=== PATIENT | female | born 1945 | race Caucasian/White ===

== ENCOUNTER → 2017-01-27 | Outpatient (CLI) | payer MEDICARE ==
[~2017-01-27] VITALS: Ht 160 cm; Wt 67.6 kg
[~2017-01-27] MED LIST: ASP81TEC PO; ATRV10T PO; CATHETER FLUSH 10 ML SYR IV PRN; FRSM20T PO; FURO40TA4 PO; METO-333 PO; MTP25TSR PO; NIFE30TA PO; NITR0.4T12 SL; OMEG1CAP74 PO; PNT40TEC PO; POTA10CA43 PO; TICA90TA PO
[2017-01-27 13:06] VITALS: BP 177/63
--- NOTE | 2017-01-28 08:43 | STRESS TEST ---
DATE OF SERVICE: 01/27/2017 EXERCISE MYOVIEW STRESS TEST INDICATION: Coronary artery disease. Baseline heart rate is 63. Baseline blood pressure 177/63. Baseline EKG sinus rhythm with no ischemic changes. In summary, the patient was injected with 10.38 mCi of technetium-99 Myoview and the resting images were obtained. Then, the patient started exercising with a baseline heart rate, blood pressure and EKG mentioned above. At minute 7 patient was injected with 30.1 mCi of technetium-99 Myoview. The patient was able to finish a total of 8 minutes on standard Dima protocol, achieving maximum heart rate of 132, which is 88% of maximum expected heart rate. With peak exercise level blood pressure was 193/97. EKG was showing minimal nondiagnostic changes. During recovery, heart rate and blood pressure returned to baseline. EKG returned to baseline. The resting and stressed images were reviewed and compared in the short axis, horizontal long axis, and vertical long axis views. Review of the images showed good radiotracer uptake with no significant ischemia or infarction on SPECT images. SSS 5, SDS 2, TID value 1.12. On the gated images, the left ventricle appeared to be normal size with normal contractility. Calculated ejection fraction 74%. CONCLUSION: 1. Fair exercise tolerance, a total of 8 minutes on standard Dima protocol, total of 9.5 METS achieving 88% of maximum expected heart rate. 2. Baseline hypertension with hypertensive response to exercise. 3. Minimal nondiagnostic EKG changes with exercise returned to baseline during recovery. 4. No significant ischemia or infarction on SPECT images. 5. Normal left ventricular size with normal contractility. Calculated ejection fraction 74%. Job ID: [id number] DocumentID: [id number] Dictated Date: 01/27/2017 14:55:16 Recooperer Date: 01/27/2017 18:28:03 Dictated By: VALARIE MARTELL MD
== END ==
LOC: CARD 09:29
PROVIDERS: ATTEND Physician Assistant
DX: I25.10 Atherosclerotic heart disease of native coronary artery without angina pectoris (principal); I10 Essential (primary) hypertension; E78.2 Mixed hyperlipidemia; I21.4 Non-ST elevation (NSTEMI) myocardial infarction
CPT/HCPCS: 78452; 93017; 93306

== ENCOUNTER → 2017-07-02 | Outpatient (CLI) | payer MEDICARE ==
[~2017-07-02] MED LIST changes: -CATHETER FLUSH 10 ML SYR IV PRN
[2017-07-02] MEDS: IOHEXOL 350 MG/ML 100 ML (OMNIPAQUE 350) VIAL IV ONE (16:34)
[2017-07-02] MEDS: CATHETER FLUSH 10 ML SYR IV PRN (16:34)
--- NOTE | 2017-07-02 17:23 | Diagnostic Imaging Report ---
PROCEDURE: CT chest with contrast only. TECHNIQUE: Multiple contiguous axial images were obtained through the chest after administration of intravenous contrast. INDICATION: Left arm tingling. COMPARISON: CT chest from 10/08/2012. FINDINGS: Lungs and airway: No endoluminal lesion in the trachea or central bronchi. Biapical subpleural scarring is stable and asymmetric to the right. No pulmonary mass or consolidation. No suspicious pulmonary nodules to suggest neoplasm. Pleura: No pleural effusion or pneumothorax. Heart and mediastinum: Thyroid is normal. No supraclavicular or axillary lymphadenopathy. No mediastinal, hilar or juxtaphrenic lymphadenopathy. The heart is mildly enlarged without pericardial effusion. Coronary artery calcifications and/or stents are in place. Tiny hiatus hernia. Normal caliber thoracic aorta with moderate atherosclerotic plaquing. Upper abdomen: Scattered subcentimeter hypodensities within the liver are stable and likely represent cysts. Atherosclerosis of the aorta. Musculoskeletal: No concerning focal osseous lesions. IMPRESSION: 1. No acute cardiopulmonary process. 2. Stable cardiomegaly with coronary artery calcifications and/or stents. 3. Stable biapical subpleural scarring. Dictated by: Dictated on workstation # [id number]
== END ==
LOC: RAD 13:55
PROVIDERS: ATTEND Internal Medicine
DX: I25.10 Atherosclerotic heart disease of native coronary artery without angina pectoris (principal); I51.7 Cardiomegaly; J94.8 Other specified pleural conditions
CPT/HCPCS: 71260

== ENCOUNTER 2018-05-20 15:31 | Observation (INO) | payer MEDICARE ==
[~2018-05-20] VITALS: Ht 157.5 cm; Wt 68.0 kg
[2018-05-20] VITALS (9 sets, daily range): BP systolic 147–173; BP diastolic 67–86
--- OUTSIDE RECORDS SUMMARY | 2018-05-20 15:38 | XMS REPORT | Continuity of Care Document ---
Author Author [facility] Organization [facility] Address Unknown Phone Unavailable Allergies Active Description Code Type Severity Reaction Onset Reported/Identified Relationship to Patient Clinical Status Yes No Known Drug Allergies [id number] Drug Allergy Unknown N/A 09/22/2012 Medications There is no data. 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,OTH INFERIOR WALL,INI 09/28/2012 Ot 414.01 CORONARY ATHEROSCLEROSIS OF [place] CORON 09/28/2012 Ot 518.81 ACUTE RESPIRATORY FAILURE 09/28/2012 Ot 785.51 CARDIOGENIC SHOCK 09/28/2012 Ot 996.72 OTH COMPLICATIONS DUE TO OTH CARD DEVICE 10/08/2012 Ot 272.4 HYPERLIPIDEMIA NEC/NOS 10/08/2012 Ot 305.1 TOBACCO USE DISORDER 10/08/2012 Ot 401.9 HYPERTENSION NOS 10/08/2012 Ot 410.42 AC MYOCRD INFRCT,OTH INFERIOR WALL,SUBSE 10/08/2012 Ot 414.01 CORONARY ATHEROSCLEROSIS OF [place] CORON 10/08/2012 Ot 530.81 ESOPHAGEAL REFLUX 10/08/2012 Ot 780.4 DIZZINESS AND GIDDINESS 10/08/2012 Ot 786.59 CHEST PAIN NEC 10/08/2012 Ot 790.99 BLOOD EXAM - OTH NONSPECIFIC FINDINGS 10/08/2012 Ot V45.82 PERCUTANEOUS TRANSLUM CORON ANGIOPLASTY 01/22/2013 VALARIE MARTELL MD Ot 410.92 AC MYOCARDIAL INFARCT,UNSPEC SITE,SUBSEQ 01/22/2013 VALARIE MARTELL MD Ot V57.89 REHABILITATION PROC NEC 01/27/2013 VALARIE MARTELL MD Ot 410.92 AC MYOCARDIAL INFARCT,UNSPEC SITE,SUBSEQ 01/27/2013 VALARIE MARTELL MD Ot V57.89 REHABILITATION PROC NEC 08/15/2014 JAYSHREE CELIS, VALARIE Mojica Ot 272.4 08/15/2014 JAYSHREE CELIS, VALARIE Mojica Ot 305.1 08/15/2014 JAYSHREE CELIS, VALARIE Mojica Ot 410.70 08/15/2014 JAYSHREE CELIS, VALARIE Mojica Ot 414.00 08/15/2014 JAYSHREE CELIS, VALARIE Mojica Ot 784.92 01/28/2015 JAYSHREE CELIS, VALARIE Mojica Ot 272.4 01/28/2015 JAYSHREE CELIS, VALARIE Mojica Ot 305.1 01/28/2015 JAYSHREE CELIS, VALARIE Mojica Ot 401.9 01/28/2015 JAYSHREE CELIS, VALARIE Mojica Ot 414.9 02/11/2015 JAYSHREE CELIS, VALARIE Mojica Ot 272.4 02/11/2015 JAYSHREE CELIS, VALARIE Mojica Ot 305.1 02/11/2015 JAYSHREE CELIS, VALARIE Mojica Ot 401.9 02/11/2015 JAYSHREE CELIS, VALARIE Mojica Ot 414.9 02/20/2015 Ot V76.12 02/20/2015 Ot 786.2 02/20/2015 Ot 786.50 02/20/2015 Ot 433.10 02/20/2015 Ot 573.8 02/20/2015 Ot 780.4 02/20/2015 JAYSHREE CELIS, VALARIE Mojica Ot 272.4 02/20/2015 JAYSHREE CELIS, VALARIE Mojica Ot 305.1 02/20/2015 JAYSHREE CELIS, VALARIE Mojica Ot 412 02/20/2015 JAYSHREE CELIS, VALARIE Mojica Ot 414.00 02/20/2015 VALARIE MARTELL MD Ot 272.4 02/20/2015 JAYSHREE CELIS, VALARIE Mojica Ot 305.1 02/20/2015 JAYSHREE CELIS, VALARIE Mojica Ot 410.70 02/20/2015 JAYSHREE CELIS, VALARIE Mojica Ot 414.00 02/20/2015 JAYSHREE CELIS, VALARIE Mojica Ot 784.92 02/20/2015 JAYSHREE CELIS, VALARIE Mojica Ot 272.4 02/20/2015 JAYSHREE CELIS, VALARIE Mojica Ot 305.1 02/20/2015 JAYSHREE CELIS, VALARIE Mojica Ot 401.9 02/20/2015 JAYSHREE CELIS, VALARIE Mojica Ot 414.9 02/20/2015 Ot 272.4 02/20/2015 Ot 305.1 02/20/2015 Ot 401.9 02/20/2015 Ot 414.00 02/27/2015 Ot 272.4 02/27/2015 Ot 305.1 02/27/2015 Ot 401.9 02/27/2015 Ot 414.00 03/07/2015 Ot 272.4 03/07/2015 Ot 305.1 03/07/2015 Ot 401.9 03/07/2015 Ot 414.00 03/13/2015 CHEL ROMERO MD Ot 786.09 03/13/2015 CHEL ROMERO MD Ot V15.82 03/20/2015 CHEL ROMERO MD Ot 786.09 03/20/2015 CHEL ROMERO MD Ot V15.82 08/12/2015 VALARIE MARTELL MD Ot I65.23 09/02/2015 VALARIE MARTELL MD Ot I65.23 09/23/2015 VALARIE MARTELL MD Ot I65.23 01/27/2017 Ot 433.10 CAROTID ARTERY OCCLUSION W O CEREBRAL IN 01/27/2017 Ot 573.8 LIVER DISORDERS NEC 01/27/2017 Ot 780.4 DIZZINESS AND GIDDINESS 01/27/2017 VALARIE MARTELL MD Ot 272.4 HYPERLIPIDEMIA NEC/NOS 01/27/2017 VALARIE MARTELL MD Ot 305.1 TOBACCO USE DISORDER 01/27/2017 VALARIE MARTELL MD Ot 412 OLD MYOCARDIAL INFARCT 01/27/2017 VALARIE MARTELL MD Ot 414.00 CORON ATHEROSCLER NOS TYPE VESSEL, NATIV 01/27/2017 VALARIE MARTELL MD Ot 272.4 HYPERLIPIDEMIA NEC/NOS 01/27/2017 VALARIE MARTELL MD Ot 305.1 TOBACCO USE DISORDER 01/27/2017 VALARIE MARTELL MD Ot 410.70 AC MYOCARD INFARCT,SUBENDO INFARCT,EPISO 01/27/2017 VALARIE MARTELL MD Ot 414.00 CORON ATHEROSCLER NOS TYPE VESSEL, NATIV 01/27/2017 VALARIE MARTELL MD Ot 784.92 JAW PAIN 01/27/2017 VALARIE MARTELL MD Ot 272.4 HYPERLIPIDEMIA NEC/NOS 01/27/2017 VALARIE MARTELL MD Ot 305.1 TOBACCO USE DISORDER 01/27/2017 VALARIE MARTELL MD Ot 401.9 HYPERTENSION NOS 01/27/2017 VALARIE MARTELL MD Ot 414.9 CHR ISCHEMIC HRT DIS NOS 01/27/2017 Ot 272.4 HYPERLIPIDEMIA NEC/NOS 01/27/2017 Ot 305.1 TOBACCO USE DISORDER 01/27/2017 Ot 401.9 HYPERTENSION NOS 01/27/2017 Ot 414.00 CORON ATHEROSCLER NOS TYPE VESSEL, NATIV 01/27/2017 HEATHER CELIS, CHEL Claudio Ot 786.09 RESPIRATORY ABNORM NEC 01/27/2017 HEATHER CELIS, CHEL Claudio Ot V15.82 HISTORY OF TOBACCO USE 01/27/2017 JAYSHREE CELIS, VALARIE Mojica Ot I65.23 OCCLUSION AND STENOSIS OF BILATERAL [place] 02/17/2017 KASI DIAZ Ot E78.2 MIXED HYPERLIPIDEMIA 02/17/2017 KASI DIAZ Ot I10 ESSENTIAL (PRIMARY) HYPERTENSION 02/17/2017 KASI DIAZ Ot I21.4 NON-ST ELEVATION (NSTEMI) MYOCARDIAL INF 02/17/2017 KASI DIAZ Ot I25.10 ATHSCL HEART DISEASE OF [place] CORONARY 02/24/2017 KASI DIAZ Ot E78.2 MIXED HYPERLIPIDEMIA 02/24/2017 KASI DIAZ Ot I10 ESSENTIAL (PRIMARY) HYPERTENSION 02/24/2017 KASI DIAZ Ot I21.4 NON-ST ELEVATION (NSTEMI) MYOCARDIAL INF 02/24/2017 KASI DIAZ Ot I25.10 ATHSCL HEART DISEASE OF [place] CORONARY 06/30/2017 Ot 433.10 CAROTID ARTERY OCCLUSION W O CEREBRAL IN 06/30/2017 Ot 573.8 LIVER DISORDERS NEC 06/30/2017 Ot 780.4 DIZZINESS AND GIDDINESS 06/30/2017 VALARIE MARTELL MD Ot 272.4 HYPERLIPIDEMIA NEC/NOS 06/30/2017 VALARIE MARTELL MD Ot 305.1 TOBACCO USE DISORDER 06/30/2017 VALARIE MARTELL MD Ot 412 OLD MYOCARDIAL INFARCT 06/30/2017 VALARIE MARTELL MD Ot 414.00 CORON ATHEROSCLER NOS TYPE VESSEL, NATIV 06/30/2017 VALARIE MARTELL MD Ot 272.4 HYPERLIPIDEMIA NEC/NOS 06/30/2017 VALARIE MARTELL MD Ot 305.1 TOBACCO USE DISORDER 06/30/2017 VALARIE MARTELL MD Ot 410.70 AC MYOCARD INFARCT,SUBENDO INFARCT,EPISO 06/30/2017 VALARIE MARTELL MD Ot 414.00 CORON ATHEROSCLER NOS TYPE VESSEL, NATIV 06/30/2017 VALARIE MARTELL MD Ot 784.92 JAW PAIN 06/30/2017 VALARIE MARTELL MD Ot 272.4 HYPERLIPIDEMIA NEC/NOS 06/30/2017 VALARIE MARTELL MD Ot 305.1 TOBACCO USE DISORDER 06/30/2017 VALARIE MARTELL MD Ot 401.9 HYPERTENSION NOS 06/30/2017 VALARIE MARTELL MD Ot 414.9 CHR ISCHEMIC HRT DIS NOS 06/30/2017 Ot 272.4 HYPERLIPIDEMIA NEC/NOS 06/30/2017 Ot 305.1 TOBACCO USE DISORDER 06/30/2017 Ot 401.9 HYPERTENSION NOS 06/30/2017 Ot 414.00 CORON ATHEROSCLER NOS TYPE VESSEL, NATIV 06/30/2017 CHEL ROMERO MD Ot 786.09 RESPIRATORY ABNORM NEC 06/30/2017 CHEL ROMERO MD Ot V15.82 HISTORY OF TOBACCO USE 06/30/2017 VALARIE MARTELL MD Ot I65.23 OCCLUSION AND STENOSIS OF [place]IL[place] 06/30/2017 KASI DIAZ Ot E78.2 MIXED HYPERLIPIDEMIA 06/30/2017 KASI DIAZ Ot I10 ESSENTIAL (PRIMARY) HYPERTENSION 06/30/2017 KASI DIAZ Ot I21.4 NON-ST ELEVATION (NSTEMI) MYOCARDIAL INF 06/30/2017 KASI DIAZ Ot I25.10 ATHSCL HEART DISEASE OF [place] CORONARY 07/23/2017 CHEL ROMERO MD Ot I25.10 ATHSCL HEART DISEASE OF [place] CORONARY 07/23/2017 CHEL ROMERO MD Ot I51.7 CARDIOMEGALY 07/23/2017 CHEL ROMERO MD Ot J94.8 OTHER SPECIFIED PLEURAL CONDITIONS 07/29/2017 CHEL ROMERO MD Ot I25.10 ATHSCL HEART DISEASE OF [place] CORONARY 07/29/2017 CHEL ROMERO MD Ot I51.7 CARDIOMEGALY 07/29/2017 CHEL ROMERO MD Ot J94.8 OTHER SPECIFIED PLEURAL CONDITIONS Procedures Code Description Performed By Performed On 00.40 PROCEDURE ON SINGLE VESSEL 09/22/2012 00.45 INSERTION OF ONE VASCULAR STENT 09/22/2012 00.46 INSERTION OF TWO VASCULAR STENTS 09/22/2012 00.66 PERCUTANEOUS TRANSLUMINAL CORONARY ANGIO 09/22/2012 36.06 CORONARY ARTERY STENT INSERTION NON-DRUG 09/22/2012 36.07 INSRT OF DRUG-ELUTING CORON ARTERY STENT 09/22/2012 37.22 LEFT HEART CARDIAC CATH 09/22/2012 37.61 PULSATION BALLOON IMPLAN 09/22/2012 39.64 INTRAOP CARDIAC PACEMAK 09/22/2012 88.53 LT HEART ANGIOCARDIOGRAM 09/22/2012 88.56 CORONAR ARTERIOGR-2 CATH 09/22/2012 96.04 INSERT ENDOTRACHEAL TUBE 09/22/2012 96.71 CONTINUOUS INVASIVE MECHANICAL VENTILATI 09/22/2012 99.10 INJECT/INFUSE THROMBOLYTIC AGENT 09/22/2012 99.20 INJECT/INFUSE PLATELET INHIBITOR 09/22/2012 Results There is no data. Encounters ACCT No. Visit Date/Time Discharge Status Pt. Type Provider Facility Loc./Unit Complaint [id number] 07/02/2017 13:55:00 07/02/2017 23:59:59 CLS Outpatient CHEL ROMERO MD [facility] RAD LT ARM [place] [id number] 01/27/2017 09:29:00 01/27/2017 23:59:59 CLS Outpatient KASI DIAZ [facility] CARD CAD,HTN, HYPERLIPIDEMIA,NSTEMI [id number] 08/07/2015 08:50:00 08/07/2015 23:59:59 CLS Outpatient VALARIE MARTELL MD [facility] RAD CAROTID ARTERY STENOSIS [id number] 02/20/2015 11:27:00 02/20/2015 23:59:59 CLS Outpatient CHEL ROMERO MD [facility] RT DYPNEA, TOBBACCIASM [id number] 01/04/2015 08:38:00 01/04/2015 23:59:59 CLS Outpatient VALARIE MARTELL MD [facility] CARD CAD,HTN,HLP,TOBACCO USE [id number] 08/29/2013 11:32:00 08/29/2013 23:59:59 CLS Outpatient VALARIE MARTELL MD [facility] RAD CAD,HYPERLIPIDEMIA,JAW PAIN,NSTEMI [id number] 08/10/2013 07:15:00 08/10/2013 23:59:59 CLS Outpatient VALARIE MARTELL MD [facility] CARD CAD,HLP,JAW PAIN [id number] 01/25/2013 12:03:00 01/27/2013 13:00:00 DIS Outpatient VALARIE MARTELL MD [facility] [id number] 01/20/2013 11:44:00 01/22/2013 00:01:00 DIS Outpatient VALARIE MARTELL MD [facility] AMI [id number] 02/04/2015 07:41:00 Document Registration [id number] 10/13/2012 08:05:00 Document Registration [id number] 10/08/2012 02:30:00 Document Registration [id number] 09/22/2012 11:11:00 Document Registration [id number] 06/24/2010 10:02:00 Document Registration [id number] 11/01/2009 06:51:00 Document Registration
[2018-05-20] MEDS ORDERED: ASPIRIN 81 MG CHEW (CHILDREN'S ASA) PO ONE (15:45)
[2018-05-20 15:56] LABS: BASOPHILS % (AUTO) 0 % (0-10); EOSINOPHILS # (AUTO) 0.1 10^3/uL (0.0-0.3); EOSINOPHILS % (AUTO) 1 % (0-10); HEMATOCRIT 38 % (35-52); HEMOGLOBIN 12.7 G/DL (11.5-16.0); LYMPHOCYTES % (AUTO) 31 % (12-44); MEAN CORPUSCULAR HEMOGLOBIN 32 PG (25-34); MEAN CORPUSCULAR HGB CONC 33 G/DL (32-36); MEAN CORPUSCULAR VOLUME 97 FL (80-99); MEAN PLATELET VOLUME 10.8 FL (7.4-10.4); MONOCYTES # (AUTO) 0.4 X 10^3 (0.0-1.0); MONOCYTES % (AUTO) 7 % (0-12); NEUTROPHILS % (AUTO) 61 % (42-75); PLATELET COUNT 224 10^3/uL (130-400); RED BLOOD COUNT 3.97 10^6/uL (4.35-5.85); RED CELL DISTRIBUTION WIDTH 12.3 % (10.0-14.5); WHITE BLOOD COUNT 6.5 10^3/uL (4.3-11.0)
[2018-05-20] MEDS ORDERED: morphine INJ 10 MG/ML 1ML (SYR OR VIAL) IVP ONE (16:00)
[2018-05-20 16:13] LABS: ALANINE AMINOTRANSFERASE 16 U/L (0-55); ALBUMIN 4.1 GM/DL (3.2-4.5); ALKALINE PHOSPHATASE 66 U/L (40-136); BILIRUBIN,TOTAL 0.5 MG/DL (0.1-1.0); BUN/CREATININE RATIO 15; CALCIUM 9.8 MG/DL (8.5-10.1); CARBON DIOXIDE 29 MMOL/L (21-32); CHLORIDE 106 MMOL/L (98-107); CREATININE SERUM 0.94 MG/DL (0.60-1.30); GFR ESTIMATED 58; GLUCOSE 111 MG/DL (70-105); MAGNESIUM 2.3 MG/DL (1.8-2.4); POTASSIUM 3.8 MMOL/L (3.6-5.0); SODIUM 142 MMOL/L (135-145); TOTAL PROTEIN 6.8 GM/DL (6.4-8.2)
[2018-05-20] MEDS ORDERED: TICAGRELOR 90 MG TABLET (BRILINTA) PO ONE (16:15)
[2018-05-20 16:17] LABS: PROTHROMBIN TIME PATIENT 12.7 SEC (12.2-14.7)
[2018-05-20 16:20] LABS: MYOGLOBIN SERUM 39.9 NG/ML (10.0-92.0)
--- NOTE | 2018-05-20 16:25 | ED Chest Pain ---
General Chief Complaint: Chest Pain Stated Complaint: CHEST PAINS Nursing Triage Note: ARRIVED VIA AMB TO ROOM 01. COMPLAINS OF CHEST PAIN STARTING 15MINS [employer] WHILE SITTING AT THE [employer]. POINTS TO UPPERGASTRIC REGION AND STATES BILAT JAW HURTS. Nursing Sepsis Screen: No Definite Risk Source: patient Exam Limitations: no limitations History of Present Illness Date Seen by Provider: May 20, 2018 Time Seen by Provider: 15:00 Initial Comments 73-year-old female who presents to the emergency room POV with complaints of epigastric substernal chest pain that radiates to her jaws bilaterally started 15 minutes prior to arrival. She [place] that [place] the chest pain started. She did take 3 nitroglycerin that did not relieve her chest pain. Timing/Duration: 1/2 hour Location: substernal, central Radiation: jaw ASA po [employer] SUPER[employer]OR: No NTG SL [employer] SUPER[employer]OR: Yes Associated Symptoms: shortness of breath Allergies and Home Medications Allergies Coded Allergies: No Known Drug Allergies (Unverified , 05/20/18) Home Medications Aspirin 81 Mg Tabec, 81 MG PO DAILY, (Reported) Atorvastatin Calcium 10 Mg Tablet, 10 MG PO DAILY, (Reported) Metoprolol Succinate 25 Mg Tab.sr.24h, 25 MG PO DAILY, (Reported) Nitroglycerin 0.4 Mg Tab.subl, 0.4 MG SL, (Reported) Patient Home Medication List Home Medication List Reviewed: Yes Review of Systems Review of Systems Constitutional: no symptoms reported, see HPI Respiratory: See HPI, Shortness of Air Cardiovascular: See HPI, Chest Pain All Other Systems Reviewed Negative Unless Noted: Yes Past Hxkyqdm-Ylbjnv-Trozkp Hx Past Med/Social Hx: Reviewed Nursing Past Med/Soc Hx Patient Social History Alcohol Use: Denies Use Recreational Drug Use: No Smoking Status: Never a Smoker Recent Foreign Travel: No Contact w/Someone Who Travel: No Recent Infectious Disease Expo: No Immunizations Up To Date Tetanus Booster (TDap): Unknown Date of Influenza Vaccine: May 20, 2018 Past Medical History Surgeries: Yes (colonoscopy, 5 STENTS PLACED ON THE 09/22/12) Respiratory: No Cardiac: Yes (heart stents) Neurological: No Reproductive Disorders: No Gastrointestinal: No Musculoskeletal: No Endocrine: No Cancer: No Psychosocial: No Integumentary: No Blood Disorders: No Family Medical History Reviewed Nursing Family Hx Heart Disease Physical Exam Vital Signs Vital Signs - First Documented 05/20/18 15:31 Temp 98.0 Pulse 85 Resp 16 B/P (MAP) 149/90 (109) Pulse Ox 96 O2 Delivery Room Air Capillary Refill : Less Than 3 Seconds Height, Weight, BMI Height: 5'2.00" Weight: 150lbs. 0.0oz. 68.262379hi; 26.4 BMI Method:Estimated General Appearance: No Apparent Distress, WD/WN HEENT: PERRL/EOMI, Normal ENT Inspection Neck: Full Range of Motion, Normal Inspection, Non Tender Respiratory: Chest Non Tender, Lungs Clear, Normal Breath Sounds, No Accessory Muscle Use, No Respiratory Distress Cardiovascular: Regular Rate, Rhythm, No Edema, No Gallop, No JVD, No Murmur, Normal Peripheral Pulses Gastrointestinal: Normal Bowel Sounds, No Organomegaly, No Pulsatile Mass, Non Tender, Soft Neurologic/Psychiatric: Alert, Oriented x3, Normal Mood/Affect Skin: Normal Color, Warm/Dry Progress/Results/Core Measures Results/Orders Lab Results Laboratory Tests Test 05/20/18 15:45 Range/Units White Blood Count 6.5 4.3-11.0 10^3/uL Red Blood Count 3.97 L 4.35-5.85 10^6/uL Hemoglobin 12.7 11.5-16.0 G/DL Hematocrit 38 35-52 % Mean Corpuscular Volume 97 80-99 FL Mean Corpuscular Hemoglobin 32 25-34 PG Mean Corpuscular Hemoglobin Concent 33 32-36 G/DL Red Cell Distribution Width 12.3 10.0-14.5 % Platelet Count 224 130-400 10^3/uL Mean Platelet Volume 10.8 H 7.4-10.4 FL Neutrophils (%) (Auto) 61 42-75 % Lymphocytes (%) (Auto) 31 12-44 % Monocytes (%) (Auto) 7 0-12 % Eosinophils (%) (Auto) 1 0-10 % Basophils (%) (Auto) 0 0-10 % Neutrophils # (Auto) 4.0 1.8-7.8 X 10^3 Lymphocytes # (Auto) 2.0 1.0-4.0 X 10^3 Monocytes # (Auto) 0.4 0.0-1.0 X 10^3 Eosinophils # (Auto) 0.1 0.0-0.3 10^3/uL Basophils # (Auto) 0.0 0.0-0.1 10^3/uL Prothrombin Time 12.7 12.2-14.7 SEC INR Comment 1.0 0.8-1.4 Activated Partial Thromboplast Time 26 24-35 SEC Sodium Level 142 135-145 MMOL/L Potassium Level 3.8 3.6-5.0 MMOL/L Chloride Level 106 98-107 MMOL/L Carbon Dioxide Level 29 21-32 MMOL/L Anion Gap 7 5-14 MMOL/L Blood Urea Nitrogen 14 7-18 MG/DL Creatinine 0.94 0.60-1.30 MG/DL Estimat Glomerular Filtration Rate 58 BUN/Creatinine Ratio 15 Glucose Level 111 H 70-105 MG/DL Calcium Level 9.8 8.5-10.1 MG/DL Corrected Calcium 9.7 8.5-10.1 MG/DL Magnesium Level 2.3 1.8-2.4 MG/DL Total Bilirubin 0.5 0.1-1.0 MG/DL Aspartate Amino Transf (AST/SGOT) 18 5-34 U/L Alanine Aminotransferase (ALT/SGPT) 16 0-55 U/L Alkaline Phosphatase 66 40-136 U/L Myoglobin 39.9 10.0-92.0 NG/ML Troponin I < 0.30 <0.30 NG/ML Total Protein 6.8 6.4-8.2 GM/DL Albumin 4.1 3.2-4.5 GM/DL My Orders Orders - RADHA WILKINSON Cbc With Automated Diff (05/20/18 15:45) Magnesium (05/20/18 15:45) Chest 1 View, Ap/Pa Only (05/20/18 15:45) Cardiac Profile 1 (05/20/18 15:45) Comprehensive Metabolic Panel (05/20/18 15:45) Myoglobin Serum (05/20/18 15:45) Protime With Inr (05/20/18 15:45) Partial Thromboplastin Time (05/20/18 15:45) O2 (05/20/18 15:45) Monitor-Rhythm Ecg Trace Only (05/20/18 15:45) Lipid Panel (05/21/18 06:00) Aspirin Chewable Tablet (Baby Aspirin Ch (05/20/18 15:45) Saline Lock/Iv-Start (05/20/18 15:45) Morphine Injection (Morphine Injection (05/20/18 16:00) Ticagrelor Tablet (Brilinta Tablet) (05/20/18 16:15) Medications Given in ED Current Medications Medications Dose Ordered Sig/Tiera Route Start Time Stop Time Status Last Admin Dose Admin Aspirin 324 mg ONCE ONCE PO 05/20/18 15:45 05/20/18 15:47 DC 05/20/18 16:06 324 MG Morphine Sulfate 2 mg ONCE ONCE IVP 05/20/18 16:00 05/20/18 16:01 DC 05/20/18 16:06 2 MG Ticagrelor 180 mg ONCE ONCE PO 05/20/18 16:15 05/20/18 16:16 DC 05/20/18 16:15 180 MG Vital Signs/I&O 05/20/18 15:31 Temp 98.0 Pulse 85 Resp 16 B/P (MAP) 149/90 (109) Pulse Ox 96 O2 Delivery Room Air Blood Pressure Mean: 109 Progress Progress Note : Time: 15:50 Progress Note The patient agrees to morphine for her remaining pain. 2 mg was given. 1600: I have discussed the case with Dr. Mcnair and he recommends giving 180 mg of Brilinta and using a nitroglycerin drip if needed for pain control and to call back after troponin is back. 1620: Patient is pain-free at this time. She agrees with plans for admission. Awaiting lab results at this time. 1650: I spoke to Dr. Alvarez and Dr. Mcnair and they agree with plans for admission. EKG : EKG Time: 15:32 Rate: 80 Rhythm: Normal Sinus Intervals: Normal ECG Comparisson: Unchanged Comment Reviewed by Dr. Davalos Diagnostic Imaging Diagonstic Imaging: Xray Plain Films/CT/US/NM/MRI: chest Comments [facility]. [place], [place] NAME: APRIL FUNES Alexandro [facility] REC#: [id number] PT STATUS: REG ER : 1945 PHYSICIAN: RADHA WILKINSON ADMIT DATE: 05/20/18/ER Draft Date of Exam:05/20/18 CHEST 1 VIEW, AP/PA ONLY EXAMINATION: Portable AP chest at 3:59 PM. INDICATION: Chest pain. FINDINGS: This exam is less than optimal as the patient is rotated. Allowing for this technical factor, the heart size is stable when compared to 02/20/2015. The right hilum and the bronchovascular markings in the right infrahilar region do seem more prominent than on the prior exam. This may in part be due to the rotation of the patient. The possibility that there is pneumonia/atelectasis involving the right lung base should also be considered. If further study is desired, then followup PA and lateral views of the chest would be recommended. The lungs are otherwise generally clear. The mediastinum is not widened. The osseous structures are intact. IMPRESSION: 1. Both the right hilum and the bronchovascular markings in the right infrahilar region do seem more prominent than on the prior exam. While this may in part be due to the rotation of the patient, the possibility that there is an underlying abnormality such as pneumonia/atelectasis should still be considered. Recommendations as above. 2. There is no acute cardiopulmonary abnormality noted otherwise. Dictated on workstation # [id number] Dict: 05/20/18 1619 Trans: 05/20/18 1641 [id number] Interpreted by: JANNETTE VARGAS MD Electronically signed by: Reviewed: Reviewed by Me Departure Communication (Admissions) Time/Spoke to Admitting Phy: 16:50 Dr Alvarez Time/Spoke to Consulting Phy: 16:50 Dr. Mcnair Impression Primary Impression: Chest pain Disposition: ADMITTED INPATIENT Condition: Stable Admissions Decision to Admit Reason: Admit from ER (General) Decision to Admit/Date: May 20, 2018 Time/Decision to Admit Time: 16:50 Departure-Patient Inst. Referrals: CHEL ROMERO MD (PCP/Family) Primary Care Physician RADHA WILKINSON May 20, 2018 16:25
--- NOTE | 2018-05-20 16:42 | Diagnostic Imaging Report ---
EXAMINATION: Portable AP chest at 3:59 PM. INDICATION: Chest pain. FINDINGS: This exam is less than optimal as the patient is rotated. Allowing for this technical factor, the heart size is stable when compared to 02/20/2015. The right hilum and the bronchovascular markings in the right infrahilar region do seem more prominent than on the prior exam. This may in part be due to the rotation of the patient. The possibility that there is pneumonia/atelectasis involving the right lung base should also be considered. If further study is desired, then followup PA and lateral views of the chest would be recommended. The lungs are otherwise generally clear. The mediastinum is not widened. The osseous structures are intact. IMPRESSION: 1. Both the right hilum and the bronchovascular markings in the right infrahilar region do seem more prominent than on the prior exam. While this may in part be due to the rotation of the patient, the possibility that there is an underlying abnormality such as pneumonia/atelectasis should still be considered. Recommendations as above. 2. There is no acute cardiopulmonary abnormality noted otherwise. Dictated by: Dictated on workstation # [id number]
[2018-05-20] MEDS ORDERED: NITROGLYCERIN 0.4 MG SL TABS BTL 25'S SL PRN (18:45)
[2018-05-20] MEDS ORDERED: CATHETER FLUSH 10 ML SYR IV PRN (18:45)
[2018-05-20] MEDS ORDERED: morphine INJ 4 MG/ML 1 ML (VIAL/SYRINGE) IV PRN (18:45)
[2018-05-20] MEDS ORDERED: amLODIPine 5 MG (NORVASC) TAB PO SCH (21:00)
[2018-05-20] MEDS: CATHETER FLUSH 10 ML SYR IV SCH (21:36)
[2018-05-20 22:21] LABS: MYOGLOBIN SERUM 42.3 NG/ML (10.0-92.0)
[2018-05-21] VITALS: BP 147/67
[2018-05-21] MEDS ORDERED: IBUPROFEN TABLET 200 MG TAB PO PRN (02:15)
[2018-05-21 04:00] VITALS: BP 135/61
[2018-05-21 04:04] LABS: BASOPHILS % (AUTO) 0 % (0-10); EOSINOPHILS # (AUTO) 0.1 10^3/uL (0.0-0.3); EOSINOPHILS % (AUTO) 1 % (0-10); HEMATOCRIT 38 % (35-52); HEMOGLOBIN 12.5 G/DL (11.5-16.0); LYMPHOCYTES % (AUTO) 13 % (12-44); MEAN CORPUSCULAR HEMOGLOBIN 32 PG (25-34); MEAN CORPUSCULAR HGB CONC 33 G/DL (32-36); MEAN CORPUSCULAR VOLUME 96 FL (80-99); MEAN PLATELET VOLUME 11.5 FL (7.4-10.4); MONOCYTES # (AUTO) 0.4 X 10^3 (0.0-1.0); MONOCYTES % (AUTO) 5 % (0-12); NEUTROPHILS # (AUTO) 5.8 X 10^3 (1.8-7.8); NEUTROPHILS % (AUTO) 81 % (42-75); PLATELET COUNT 180 10^3/uL (130-400); RED CELL DISTRIBUTION WIDTH 12.2 % (10.0-14.5); WHITE BLOOD COUNT 7.2 10^3/uL (4.3-11.0)
[2018-05-21 04:19] LABS: CHOLESTEROL 165 MG/DL (< 200); HDL CHOLESTEROL 59 MG/DL (40-60); TRIGLYCERIDES 66 MG/DL (<150); VLDL CHOLESTEROL 13 MG/DL (5-40)
[2018-05-21 04:28] LABS: ALANINE AMINOTRANSFERASE 15 U/L (0-55); ALBUMIN 3.9 GM/DL (3.2-4.5); ALKALINE PHOSPHATASE 70 U/L (40-136); BILIRUBIN,TOTAL 1.2 MG/DL (0.1-1.0); BUN/CREATININE RATIO 16; CALCIUM 9.1 MG/DL (8.5-10.1); CARBON DIOXIDE 20 MMOL/L (21-32); CHLORIDE 106 MMOL/L (98-107); CREATININE SERUM 0.79 MG/DL (0.60-1.30); GFR ESTIMATED > 60; GLUCOSE 125 MG/DL (70-105); POTASSIUM 3.7 MMOL/L (3.6-5.0); SODIUM 139 MMOL/L (135-145); TOTAL PROTEIN 6.3 GM/DL (6.4-8.2)
[2018-05-21] MEDS ORDERED: TICAGRELOR 90 MG TABLET (BRILINTA) PO SCH (05:00)
[2018-05-21] MEDS: CATHETER FLUSH 10 ML SYR IV SCH (05:18)
[2018-05-21 08:00] VITALS: BP 112/54
[2018-05-21] MEDS ORDERED: ASPIRIN E.C. 81 MG (ECOTRIN) TAB PO SCH (09:00)
[2018-05-21] MEDS ORDERED: ATORVASTATIN 10 MG (LIPITOR) TABLET PO SCH ×2 (09:00→21:00)
[2018-05-21] MEDS ORDERED: ATORVASTATIN CALCIUM 10 MG PO SCH (09:00)
--- NOTE | 2018-05-21 10:10 | Short Stay Summary ---
History of Present Illness History of Present Illness Reason for visit/HPI 73 years old lady with history of coronary artery disease had myocardial infarction in the past. Was in his usual state of health until yesterday afternoon when she started having chest pain described as dull achiness in the retrosternal area associated with some shortness of breath did not respond to 3 sublingual nitroglycerin came into the emergency room and she was still having chest pain. Workup was negative, pain responded to morphine. No further episodes of chest pain were reported. Currently feeling better. Denied any other symptoms. Cardiac enzymes and EKG were normal Date of Admission May 20, 2018 at 17:00 Date of Discharge May 21, 2018 Time Seen by Provider: 10:00 Attending Physician oDug Alvarez MD Admitting Physician Kris Leone MD Consult Allergies and Home Medications Allergies Coded Allergies: No Known Drug Allergies (Unverified , 05/20/18) Home Medications Aspirin 81 Mg Tabec, 81 MG PO DAILY, (Reported) Atorvastatin Calcium 10 Mg Tablet, 10 MG PO DAILY, (Reported) Metoprolol Succinate 25 Mg Tab.sr.24h, 25 MG PO DAILY, (Reported) Nitroglycerin 0.4 Mg Tab.subl, 0.4 MG SL, (Reported) Patient Home Medication List Home Medication List Reviewed: Yes Past Zrzgeny-Zlhizo-Cnwguj Hx Patient Social History Marrital Status: Employed/Student: retired Alcohol Use: Denies Use Recreational Drug Use: No Smoking Status: Never a Smoker Physical Abuse Screen: No Sexual Abuse: No Recent Foreign Travel: No Contact w/other who traveled: No Recent Infectious Disease Expo: No Immunizations Up To Date Tetanus Booster (TDap): Unknown Date of Pneumonia Vaccine: Oct 18, 2014 Date of Influenza Vaccine: May 20, 2018 Surgeries Yes (colonoscopy, 5 STENTS PLACED ON THE 09/22/12) Respiratory No Cardiovascular Yes (heart stents) Neurological No Reproductive System Hx Reproductive Disorders: No Gastrointestinal No Musculoskeletal No Endocrine History of Endocrine Disorders: No Cancer No Psychosocial History of Psychiatric Problem: No Integumentary History of Skin or Integumenta: No Blood Transfusions History of Blood Disorders: No Family Medical History Significant Family History: Heart Disease Review of Systems Constitutional: no symptoms reported, see HPI EENTM: see HPI, no symptoms reported Respiratory: see HPI; No cough, No dyspnea on exertion, No hemoptysis, No orthopnea, No phlegm; short of breath; No stridor, No wheezing, No other Cardiovascular: see HPI, chest pain; No edema, No Hx of Intervention, No palpitations, No syncope, No vascular heart diseas, No other Gastrointestinal: no symptoms reported, see HPI Genitourinary: no symptoms reported, see HPI Musculoskeletal: no symptoms reported, see HPI Skin: no symptoms reported, see HPI Psychiatric/Neurological: No Symptoms Reported, See HPI Physical Exam Vital Signs Vital Signs - First Documented 05/20/18 00:00 Temp 97.1 Pulse 72 Resp 20 B/P (MAP) 147/67 (93) Pulse Ox 97 O2 Delivery Room Air Capillary Refill : Less Than 3 Seconds Height, Weight, BMI Height: 5'2.00" Weight: 150lbs. 0.0oz. [id number]; 26.4 BMI Method:Estimated General Appearance: No Apparent Distress, WD/WN Eyes: Bilateral Eye Normal Inspection, Bilateral Eye PERRL, Bilateral Eye EOMI HEENT: PERRL/EOMI, TMs Normal, Normal ENT Inspection, Pharynx Normal Neck: Full Range of Motion, Normal Inspection, Non Tender, Supple, Carotid Bruit Respiratory: Chest Non Tender, Lungs Clear, Normal Breath Sounds, No Accessory Muscle Use, No Respiratory Distress Cardiovascular: Regular Rate, Rhythm, No Edema, No Gallop, No JVD, No Murmur, Normal Peripheral Pulses Gastrointestinal: Normal Bowel Sounds, No Organomegaly, No Pulsatile Mass, Non Tender, Soft Back: Normal Inspection, No CVA Tenderness, No Vertebral Tenderness Extremity: Normal Capillary Refill, Normal Inspection, Normal Range of Motion, Non Tender, No Calf Tenderness, No Pedal Edema Neurologic/Psychiatric: Alert, Oriented x3, No Motor/Sensory Deficits, Normal Mood/Affect Skin: Normal Color, Warm/Dry Lymphatic: No Adenopathy Clinical Quality Measures Admission Status Admission Status: Observation AMI/AHF: ASA po Prior to arrival: No DVT/VTE Risk/Contraindication: Risk Factor Score Per Nursin RFS Level Per Nursing on Admit: 2=Moderate Short Stay Diagnosis Discharge Diagnosis-Short Stay Admission Diagnosis: Chest pain Coronary artery disease Hypertension Hyperlipidemia Final Discharge Diagnosis: Chest pain Coronary artery disease Hypertension Hyperlipidemia Conclusion Labs Laboratory Tests 05/20/18 15:45: White Blood Count 6.5, Red Blood Count 3.97L, Hemoglobin 12.7, Hematocrit 38, Mean Corpuscular Volume 97, Mean Corpuscular Hemoglobin 32, Mean Corpuscular Hemoglobin Concent 33, Red Cell Distribution Width 12.3, Platelet Count 224, Mean Platelet Volume 10.8H, Neutrophils (%) (Auto) 61, Lymphocytes (%) (Auto) 31 , Monocytes (%) (Auto) 7, Eosinophils (%) (Auto) 1, Basophils (%) (Auto) 0, Neutrophils # (Auto) 4.0, Lymphocytes # (Auto) 2.0, Monocytes # (Auto) 0.4, Eosinophils # (Auto) 0.1, Basophils # (Auto) 0.0, Prothrombin Time 12.7, INR Comment 1.0, Activated Partial Thromboplast Time 26, Sodium Level 142, Potassium Level 3.8, Chloride Level 106, Carbon Dioxide Level 29, Anion Gap 7, Blood Urea Nitrogen 14, Creatinine 0.94, Estimat Glomerular Filtration Rate 58, BUN/Creatinine Ratio 15, Glucose Level 111H, Calcium Level 9.8, Corrected Calcium 9.7, Magnesium Level 2.3, Total Bilirubin 0.5, Aspartate Amino Transf ( AST/SGOT) 18, Alanine Aminotransferase (ALT/SGPT) 16, Alkaline Phosphatase 66, Myoglobin 39.9, Troponin I < 0.30, Total Protein 6.8, Albumin 4.1 05/20/18 21:53: Myoglobin 42.3, Troponin I < 0.30 05/21/18 03:55: White Blood Count 7.2, Red Blood Count 3.90L, Hemoglobin 12.5, Hematocrit 38, Mean Corpuscular Volume 96, Mean Corpuscular Hemoglobin 32, Mean Corpuscular Hemoglobin Concent 33, Red Cell Distribution Width 12.2, Platelet Count 180, Mean Platelet Volume 11.5H, Neutrophils (%) (Auto) 81H, Lymphocytes (%) (Auto) 13, Monocytes (%) (Auto) 5, Eosinophils (%) (Auto) 1, Basophils (%) (Auto) 0, Neutrophils # (Auto) 5.8, Lymphocytes # (Auto) 1.0, Monocytes # (Auto) 0.4, Eosinophils # (Auto) 0.1, Basophils # (Auto) 0.0, Sodium Level 139, Potassium Level 3.7, Chloride Level 106, Carbon Dioxide Level 20L, Anion Gap 13, Blood Urea Nitrogen 13, Creatinine 0.79, Estimat Glomerular Filtration Rate > 60, BUN/ Creatinine Ratio 16, Glucose Level 125H, Calcium Level 9.1, Corrected Calcium 9.2, Total Bilirubin 1.2H, Aspartate Amino Transf (AST/SGOT) 15, Alanine Aminotransferase (ALT/SGPT) 15, Alkaline Phosphatase 70, Troponin I < 0.30, Total Protein 6.3L, Albumin 3.9, Triglycerides Level 66, Cholesterol Level 165, LDL Cholesterol Direct 95, VLDL Cholesterol 13, HDL Cholesterol 59 Conclusion/Plan Chest pain nonspecific etiology, atypical in presentation, EKG and cardiac enzymes were negative. No further episode of chest pain, did not respond to nitroglycerin, improved after receiving morphine. Physical examination is negative. We discussed the management plan, discussed the possibility of stress test versus cardiac catheterization, patient prefer to wait and have a stress test done. I will schedule it doesn't outpatient for early next week. Coronary artery disease status post acute ST elevation myocardial infarction and cardiogenic shock in September 2012. Underwent 3.5x18 mm integrity bare-metal stent to the midright coronary artery. Brought back with subacute stent thrombosis had 2 additional stent in the proximal and distal portion of the right coronary artery using 3.5x18 mm resolute stent in the mid to distal right coronary artery and another 3.5x22 mm resolute stent in the proximal portion of the right coronary artery with excellent results. Most recent stress test and echo January 2017 revealed no ischemia or infarct with normal EF. Planning to repeat stress test Status post cardiogenic shock September [address] elevation myocardial infarction. Continue monitoring Hypertension, reporting good control at home, well controlled, continue to monitor Hyperlipidemia, maintained on Lipitor, good control on current medication, continue to monitor Moderate bilateral carotid stenosis, now recent carotid duplex July 2017, continue to monitor Ex Tobaccoism, patient stopped smoking since her heart attack in September 2012. Patient was encouraged to continue with smoking cessation. Family history of coronary artery disease. Status post transient elevation in liver enzymes due to shock liver. Improved currently tolerating statin well. Abnormal chest x-ray, I will evaluate chest x-ray ANA MARIA and VALARIE Salmeron MD May 21, 2018 10:10
--- NOTE | 2018-05-21 10:37 | Diagnostic Imaging Report ---
INDICATION: Followup chest pain EXAMINATION: Two-view chest 05/21/2018 COMPARISON: 05/20/2018 FINDINGS: Two views of the chest The lungs are hyperinflated. Coarsened markings bilaterally appear chronic. Heart slightly prominent. Pulmonary vasculature is unremarkable. No effusions, infiltrates or pneumothorax. There are coronary calcifications noted in the anterior aspect of the chest on lateral view. IMPRESSION: 1. Diffuse chronic change. No acute process. Dictated by: Dictated on workstation # [id number]
[2018-05-21 11:39] VITALS: BP 112/54
== END 2018-05-21 10:04 | disposition home or self-care (01) ==
LOC: EDUNIT# 15:31 → ER 15:34 → UNDOADMOB 17:00 → 4TH 17:00
PROVIDERS: ADMIT Internal Medicine; ATTEND Internal Medicine
DX: R07.89 Other chest pain (principal); I25.10 Atherosclerotic heart disease of native coronary artery without angina pectoris; I25.2 Old myocardial infarction; I10 Essential (primary) hypertension; E78.5 Hyperlipidemia, unspecified; I65.23 Occlusion and stenosis of bilateral carotid arteries; Z82.49 Family history of ischemic heart disease and other diseases of the circulatory system; Z87.891 Personal history of nicotine dependence; Z79.82 Long term (current) use of aspirin; Z79.899 Other long term (current) drug therapy; Z95.5 Presence of coronary angioplasty implant and graft
CPT/HCPCS: 36415; 71045; 71046; 80053; 80061; 83735; 83874; 84484; 85025; 85610; 85730; 93005; 93041; 96374; G0378

== ENCOUNTER → 2018-05-25 | Outpatient (CLI) | payer MEDICARE ==
[~2018-05-25] MED LIST changes: +CATHETER FLUSH 10 ML SYR IV PRN
[2018-05-25 12:54] VITALS: BP 199/95
--- NOTE | 2018-05-25 16:02 | STRESS TEST ---
DATE OF SERVICE: 05/25/2018 EXERCISE MYOVIEW STRESS TEST REPORT Baseline heart rate is 70, baseline blood pressure 151/91. Baseline EKG is sinus rhythm with no ischemic changes. In summary, the patient was injected with 10.49 mCi of technetium-99 Myoview and the resting images were obtained. Then, the patient started exercising with a baseline heart rate, blood pressure and EKG mentioned above. She was able to exercise for 6 minutes on standard Dima protocol. With peak exercise level, EKG was showing no significant ischemic changes. Blood pressure was 206/92. During recovery, heart rate and blood pressure returned to baseline. EKG returned to baseline. The resting and stress images were reviewed and compared in the short axis, horizontal long axis, and vertical long axis views. Review of the images showed breast attenuation with no significant ischemia or infarction. SSS is 3, SDS 3, TID value 0.92. On the gated images, the left ventricle appeared to be small in size with normal contractility. Calculated ejection fraction 74%. CONCLUSION: 1. Good exercise tolerance for a total of 6 minutes on standard Dima protocol, total of 7.3 METS achieving 92% of maximum expected heart rate. 2. Hypertensive response to exercise with peak blood pressure 206/92, returned to baseline during recovery. 3. No arrhythmia or ischemia on EKG. 4. Breast attenuation with typical female pattern with no significant ischemia or infarction on SPECT images. 5. Small left ventricular size with normal contractility. Calculated ejection fraction 74%. Job ID: [id number] DocumentID: [id number] Dictated Date: 05/25/2018 15:34:17 Licensed Practical Nurse Instructor Date: 05/25/2018 16:02:07 Dictated By: VALARIE MARTELL MD
== END ==
LOC: CARD 05-23 07:28
PROVIDERS: ATTEND Internal Medicine Cardiovascular Disease
DX: R07.9 Chest pain, unspecified (principal); I25.10 Atherosclerotic heart disease of native coronary artery without angina pectoris
CPT/HCPCS: 78452; 93017

== ENCOUNTER 2019-01-23 09:00 | Outpatient (CLI) | payer MEDICARE ==
[~2019-01-23] VITALS: Ht 160 cm; Wt 69.9 kg
[~2019-01-23 09:00] MED LIST changes: -CATHETER FLUSH 10 ML SYR IV PRN
[2019-01-23] MEDS ORDERED: FURO-125 PO (10:41)
[2019-01-23] MEDS ORDERED: RANI-515 PO (10:41)
[2019-01-23] MEDS ORDERED: METO-387 PO (10:41)
[2019-01-23] MEDS ORDERED: ATOR10TA66 PO (10:41)
[2019-01-23] MEDS ORDERED: ASPI-999 PO (10:41)
[2019-01-23] MEDS ORDERED: NITR0.4T42 SL (10:41)
== END 2019-01-23 10:44 | disposition home or self-care (01) ==
LOC: PREOP 09:00
PROVIDERS: ATTEND Surgery
DX: Z01.818 Encounter for other preprocedural examination (principal)

== ENCOUNTER 2019-01-25 08:33 | Day surgery (SDC) | payer MEDICARE ==
[2019-01-25] VITALS (8 sets, daily range): BP systolic 121–174; BP diastolic 55–95
[~2019-01-25] VITALS: Ht 160 cm; Wt 69.9 kg
[~2019-01-25 08:33] MED LIST changes: +ASPI-999 PO; +ATOR10TA66 PO; +FURO-125 PO; +METO-387 PO; +NITR0.4T42 SL; +RANI-515 PO
[2019-01-25] MEDS ORDERED: LACTATED RINGERS 1,000 ML IV ONE (08:34)
[2019-01-25] MEDS ORDERED: LACTATED RINGERS 1,000 ML IV STA (08:42)
[2019-01-25] MEDS ORDERED: HURRICAINE EXT TUBE (BENZOCAINE) XX PRN (08:45)
[2019-01-25] MEDS ORDERED: LIDOCAINE JELLY 2% 6 ML SYRINGE MM PRN (08:45)
[2019-01-25] MEDS ORDERED: PROPOFOL INJECTION 50 ML IV ONE (09:04)
[2019-01-25] MEDS ORDERED: MIDAZOLAM 2 MG/2 ML (VERSED) VIAL ONE (09:05)
[2019-01-25] MEDS ORDERED: HURRICAINE EXT TUBE (BENZOCAINE) ONE (09:44)
[2019-01-25] MEDS ORDERED: LIDOCAINE JELLY 2% 6 ML SYRINGE ONE (09:44)
--- NOTE | 2019-01-25 09:57 | Progress Note-Pre Operative ---
Pre-Operative Progress Note H&P Reviewed The H&P was reviewed, patient examined and no changes noted. Date Seen by Provider: Jan 25, 2019 Time Seen by Provider: 09:30 Date H&P Reviewed: Jan 25, 2019 Time H&P Reviewed: 09:30 Pre-Operative Diagnosis: AGAPITO OTERO MD Jan 25, 2019 09:57
[2019-01-25] MEDS ORDERED: PANT40TA2 PO (09:59)
--- NOTE | 2019-01-25 09:59 | Discharge Inst-Surgical ---
D/C Lap Instructions-ROWENA New, Converted, or Re-Newed RX: RX on Chart Follow Up Activity as tolerated High Fiber Diet 25g or more per day Avoid Alcohol, Caffeine, Spicy [place] and Acid foods. Drink 64 fluid oz or more of fluids per day. Symptoms to Report: Fever over 101 degree F, Nausea/Vomiting If any problems/questions: Contact your physician or go to Emergency Room AGAPITO GUAMAN MD Jan 25, 2019 09:59
[2019-01-25] MEDS ORDERED: morphine INJ 10 MG/ML 1ML (SYR OR VIAL) IVP PRN ×2 (10:00)
[2019-01-25] MEDS ORDERED: ONDANSETRON 4 MG/2 ML (SDV) Z0FRAN IVP PRN (10:00)
[2019-01-25] MEDS ORDERED: HYDROcodone/APAP 5 MG/325 MG (LORTAB) TAB PO PRN (10:00)
[2019-01-25] MEDS ORDERED: ACETAMINOPHEN 325 MG TABLET PO PRN (10:00)
--- NOTE | 2019-01-25 11:05 | Anesthesia-General Post-Op ---
MAC Patient Condition Mental Status/LOC: Same as Preop Cardiovascular: Satisfactory Nausea/Vomiting: Absent Respiratory: Satisfactory Pain: Controlled Complications: Absent Post Op Complications Complications None Follow Up Care/Instructions Patient Instructions None needed. Anesthesiology Discharge Order Discharge Order Patient is doing well, no complaints, stable vital signs, no apparent adverse anesthesia problems. No complications reported per nursing. BUDDY MOORE CRNA Jan 25, 2019 11:05
--- NOTE | 2019-01-25 11:26 | Progress Note-Post Operative ---
Post-Operative Progess Note Surgeon (s)/International Coordinator (s) Surgeon AGAPITO GUAMAN MD International Coordinator: none Pre-Operative Diagnosis GERD Post-Operative Diagnosis reflux esophagitis(state 2-3), mild distal esophageal stricture, small-mod HH(2.5cm), moderate gastritis. Procedure & Operative Findings Date of Procedure 01/25/19 Procedure Performed/Findings EGD with bx and balloon dilatation. Anesthesia Type cs Estimated Blood Loss Estimated blood loss (mL): minimal Specimens/Packing Specimens Removed ge jxn, antrum AGAPITO GUAMAN MD Jan 25, 2019 11:26
--- NOTE | 2019-01-25 15:33 | OPERATIVE REPORT ---
DATE OF SERVICE: 01/25/2019 ATTENDING PRIMARY CARE PHYSICIAN: Dr. Leone. PREOPERATIVE DIAGNOSES: Gastroesophageal reflux disease, dysphagia. POSTOPERATIVE DIAGNOSES: Distal esophageal stricture and Schatzki's ring, small to moderate size hiatal hernia approximately 2.5 cm in size, mild to moderate gastritis. No distal obstructions. PROCEDURE: EGD with biopsy and balloon dilatation. SURGEON: Agapito Guaman MD ANESTHESIA: Monitored anesthesia care. ESTIMATED BLOOD LOSS: Minimal. FINDINGS: Distal esophageal stricture and Schatzki's ring, small to moderate size hiatal hernia approximately 2.5 cm in size, mild to moderate gastritis. No distal obstructions. DISPOSITION: The patient tolerated the procedure well. INDICATIONS: The patient is a 73-year-old female with recurrent episodes of epigastric burning sensation, reflux as well as regurgitation. She states that she has been on Zantac, which initially did help; however, in the past few months, she has had worsening episodes and has had dysphagia and difficulty swallowing. She does have a history of peptic ulcer disease and was found to have an ulcer in 2012. At that time, she was smoking; however, quit that same year. DESCRIPTION OF PROCEDURE: The patient was brought to the endoscopy suite, laid in the left lateral decubitus position. After adequate IV pain and sedative medications and monitored anesthesia care, the mouthpiece was applied. The endoscope was placed in the mouth, visualizing the pharynx and hypopharyngeal region. Vocal cords, epiglottis and vallecula identified and appeared to be normal. The endoscope was then gently intubated into the esophageal opening and esophagus insufflated. The endoscope was then advanced through the first, second and third portion of the esophagus at the level of the GE junction, a reflux esophagitis between stage II and III identified with a distal esophageal stricture and Schatzki's ring identified. This was biopsied with forceps with visualization of good hemostasis. The endoscope was then advanced in the stomach and the endoscope retroflexed, visualizing a hiatal hernia, which was small to moderate in size, approximately 2.5 cm. The esophageal stricture was also identified on the retroflexed view. A mild to moderate gastritis was noted. There were no formal ulcerations, polyps or any neoplasms. A biopsy was taken of the antrum to rule out H. pylori with visualization of good hemostasis. The endoscope was then advanced to the pylorus and into the first and second portion of the duodenum, which appeared normal with no distal obstructions. The endoscope was then slowly withdrawn while taking a second look. We then proceeded with balloon dilatation of the distal esophageal stricture. The balloon was placed into the stomach and pulled back to the area of the stricture. We then proceeded to 2 atmospheres of pressure or 18 mm in diameter with no resistance. We then proceeded to 4 atmospheres of pressure or 19 mm in diameter with mild to moderate resistance. We then proceeded to 5 atmospheres of pressure or approximately 19.5 mm in luminal diameter with moderate resistance and left this in place for approximately 60 seconds. The balloon was then desufflated and removed. Good hemostasis was observed as well as no mucosal tears. The endoscope was then slowly withdrawn while taking a second look and suctioning of residual air with no additional findings. The patient tolerated the procedure well. We will recommend the necessary lifestyle and diet accommodation including small and more frequent meals, avoidance of eating at night as well as head elevation while lying supine. She also needs to avoid caffeinated beverages, spicy, greasy and acidic foods. We will also start her on Protonix 40 mg daily. Due to her gastroesophageal reflux disease, hiatal hernia as well as the stricture, we will recommend graded dilatation and have her follow up in approximately 6 to 8 weeks. We will also proceed with a trial of Protonix 40 mg daily. Job ID: [id number] DocumentID: [id number] Dictated Date: 01/25/2019 10:33:03 Agate Setter Date: 01/25/2019 15:32:28 Dictated By: AGAPITO GUAMAN MD
== END 2019-01-25 11:25 | disposition home or self-care (01) ==
LOC: ENDO 08:33
PROVIDERS: ATTEND Surgery
DX: K21.0 Gastro-esophageal reflux disease with esophagitis (principal); K29.50 Unspecified chronic gastritis without bleeding; K21.9 Gastro-esophageal reflux disease without esophagitis; K22.2 Esophageal obstruction; K44.9 Diaphragmatic hernia without obstruction or gangrene; K27.9 Peptic ulcer, site unspecified, unspecified as acute or chronic, without hemorrhage or perforation; I25.10 Atherosclerotic heart disease of native coronary artery without angina pectoris; I10 Essential (primary) hypertension; E78.5 Hyperlipidemia, unspecified; J44.9 Chronic obstructive pulmonary disease, unspecified; G62.9 Polyneuropathy, unspecified; Z79.82 Long term (current) use of aspirin; Z79.899 Other long term (current) drug therapy; Z95.5 Presence of coronary angioplasty implant and graft; Z82.49 Family history of ischemic heart disease and other diseases of the circulatory system; Z83.3 Family history of diabetes mellitus

== ENCOUNTER → 2020-07-08 | Outpatient (CLI) | payer MEDICARE ==
[~2020-07-08] VITALS: Ht 160 cm; Wt 71.0 kg
[~2020-07-08] MED LIST changes: +CATHETER FLUSH 10 ML SYR IV PRN; -METO-387 PO; +PANT40TA2 PO; -RANI-515 PO; +RANI-609 PO
[2020-07-08 08:53] VITALS: BP 164/76
--- NOTE | 2020-07-08 11:55 | Cardiology Stress Test Report ---
Stress Test Report Date of Procedure/Referring: Date of Procedure: Jul 08, 2020 July Booth Admitting Physician Kris Leone MD Indications: Heart disease Baseline Heart Rate: 71 Baseline Blood Pressure: Blood Pressure Systolic: 164 Blood Pressure Diastolic: 76 Vital Signs Date Time Temp Pulse Resp B/P (MAP) Pulse Ox O2 Delivery O2 Flow Rate FiO2 07/08/20 08:53 75 18 164/76 (105) 98 Room Air Baseline Vital Signs Vital Signs Date Time Temp Pulse Resp B/P (MAP) Pulse Ox O2 Delivery O2 Flow Rate FiO2 07/08/20 08:53 75 18 164/76 (105) 98 Room Air Baseline EKG: Baseline EKG: normal sinus rhythm, occasional PVCs Summary: After explaining the procedure and details to the patient, she signed the consent and was brought to the stress nuclear laboratory. Patient exercised on standard Dima protocol, EKG, heart rate and blood pressure were monitored continuously, resting and stress doses of radio tracer were injected, imaging was acquired and reviewed in the short axis, horizontal long axis and vertical long axis views Patient was able to exercise for a total of 4:30 minutes on Dima protocol, METs 6.4 Maximum heart rate 134 Maximum blood pressure 230/95 Stress EKG, Minimal nondiagnostic changes Recovery EKG, Return to baseline TID: 0.95 SSS: 3 SDS: 3 EF: 78 Conclusion: 1. Good exercise tolerance for a total of 4 minutes 30 seconds on Dima protocol, 6.4 METs achieving 92 percent of maximum expected heart rate 2. Shortness of breath with exertion resolved in recovery 3. Occasional PVCs noted early in exercise and late in recovery otherwise improved during exercise except for Minimal nondiagnostic EKG changes with exercise returned to baseline during recovery 4. Breast attenuation with typical female pattern, no significant ischemia or infarction on SPECT images 5. Normal left ventricular size, normal contractility, EF 78 percent VALARIE MARTELL MD Jul 08, 2020 11:55
== END ==
LOC: CARD 07:45
PROVIDERS: ATTEND Physician Assistant
DX: I25.10 Atherosclerotic heart disease of native coronary artery without angina pectoris (principal)
CPT/HCPCS: 78452; 93017; A9502

== ENCOUNTER → 2020-07-11 | Outpatient (CLI) | payer MEDICARE ==
[~2020-07-11] MED LIST changes: -CATHETER FLUSH 10 ML SYR IV PRN
== END ==
LOC: CARD 11:00
PROVIDERS: ATTEND Physician Assistant
DX: I25.10 Atherosclerotic heart disease of native coronary artery without angina pectoris (principal); I34.0 Nonrheumatic mitral (valve) insufficiency
CPT/HCPCS: 93306

== ENCOUNTER 2021-04-23 11:05 | Emergency (ER) | payer MEDICARE ==
[~2021-04-23] VITALS: Ht 160 cm; Wt 71.0 kg
--- NOTE | 2021-04-23 11:20 | ED General ---
General Chief Complaint: Foreign Body Stated Complaint: MAG PILL STUCK Nursing Triage Note: took a magnesium pill and states it is "stuck in her lung" (ADITYA YOUNG) History of Present Illness Date Seen by Provider: Apr 23, 2021 Time Seen by Provider: 11:15 Initial Comments Patient is a 76-year-old female presents ED with magnesium pill stuck in the back of her throat. She states 10 months ago she swallowed a large magnesium pill and felt like it is stuck in her throat. Patient has been coughing. She attempted to drink a small amount of fluids but felt nauseous. She denies vomiting. She states she feels short of breath at this time and concerned that the pill is stuck in her lungs. History of esophageal strictures with dilations in the past. History of hiatal hernia. She denies abdominal pain, headache, dizziness, fever, chills. (ADITYA YOUNG) Allergies and Home Medications Allergies Coded Allergies: No Known Drug Allergies (Unverified , 01/23/19) Patient Home Medication List Home Medication List Reviewed: Yes (ADITYA ROLLINS MD) Aspirin (Aspirin) 81 Mg Tab.chew, 81 MG PO DAILY, (Reported) Entered as Reported by: MARK ALAMO on 01/23/19 1041 Atorvastatin Calcium (Atorvastatin Calcium) 10 Mg Tablet, 10 MG PO HS, (Reported) Entered as Reported by: MARK ALAMO on 01/23/19 1041 Furosemide (Lasix) 20 Mg Tablet, 20 MG PO DAILY PRN for SWELLING, (Reported) Entered as Reported by: MARK ALAMO on 01/23/19 1041 Metoprolol Succinate (Metoprolol Succinate) 25 Mg Tab.er.24h, 25 MG PO DAILY, (Reported) Entered as Reported by: MARK ALAMO on 01/23/19 1041 Nitroglycerin (Nitroglycerin) 0.4 Mg Tab.subl, 0.4 MG SL DAILY, (Reported) Entered as Reported by: MARK ALAMO on 01/23/19 1041 Pantoprazole Sodium (Protonix) 40 Mg Tablet.dr, 40 MG PO DAILY Prescribed by: AGAPITO GUAMAN on 01/25/19 0959 Review of Systems Review of Systems Constitutional: No chills, No diaphoresis EENTM: mouth pain; No ear discharge Respiratory: cough; No dyspnea on exertion, No orthopnea, No phlegm Gastrointestinal: No RUQ, No LUQ, No RLQ, No LLQ, No diarrhea; nausea; No vomiting Genitourinary: No decreased output, No discharge Musculoskeletal: No see HPI, No back pain Skin: No change in color, No change in hair/nails (ADITYA YOUNG) Past Cfpnulj-Zcpeef-Ryqmoe Hx Patient Social History Tobacco Use?: No (ADITYA ROLLINS MD) Immunizations Up To Date Tetanus Booster (TDap): Unknown (ADITYA YOUNG) Seasonal Allergies Seasonal Allergies: Yes (MILD) (ADITYA YOUNG) Past Medical History Surgeries: Yes (colonoscopy, 5 STENTS PLACED ON THE 09/22/12) Respiratory: No Cardiac: Yes (heart stents) Coronary Artery Disease, Heart Attack, High Cholesterol, Hypertension Neurological: No Reproductive Disorders: No Sexually Transmitted Disease: No HIV/AIDS: No Genitourinary: No Gastrointestinal: Yes Gastroesophageal Reflux Musculoskeletal: No Endocrine: No HEENT: Yes (READING GLASSES) Loss of Vision: Denies Hearing Impairment: Denies Cancer: No Psychosocial: No Integumentary: No Blood Disorders: No Adverse Reaction/Blood Tranf: No (HAS HAD BLOOD WITH NO REACTION) (ADITYA YOUNG) Surgeries: No (ADITYA ROLLINS MD) Family Medical History Heart Disease (ADITYA YOUNG) Physical Exam Vital Signs Vital Signs - First Documented 04/23/21 11:09 Temp 36.6 Pulse 108 Resp 24 B/P (MAP) 196/100 (132) Pulse Ox 95 (ADITYA ROLLINS MD) Vital Signs Capillary Refill : (ADITYA YOUNG) Height, Weight, BMI Height: 5'3.00" Weight: 154lbs. 0.0oz. 69.075455mt; 27.00 BMI Method:Estimated General Appearance: Mild Distress Eyes: Bilateral Eye Normal Inspection, Bilateral Eye PERRL, Bilateral Eye EOMI HEENT: TMs Normal, Normal ENT Inspection, Pharynx Normal Neck: Full Range of Motion, Normal Inspection, Non Tender, Supple, Other (No stridor) Respiratory: Chest Non Tender, Lungs Clear, Normal Breath Sounds, No Accessory Muscle Use, No Respiratory Distress; No Wheezing Cardiovascular: No Edema, No Gallop, No JVD Gastrointestinal: Normal Bowel Sounds, No Organomegaly, No Pulsatile Mass, Non Tender Back: Normal Inspection, No CVA Tenderness Neurologic/Psychiatric: Alert, Oriented x3, No Motor/Sensory Deficits, Normal Mood/Affect Skin: Normal Color, Warm/Dry (ADITYA YOUNG) Progress/Results/Core Measures Suspected Sepsis SIRS Temperature: Pulse: 108 Respiratory Rate: 24 Blood Pressure 196 /100 Mean: 132 (ADITYA YOUNG) Results/Orders Vital Signs/I&O 04/23/21 04/23/21 11:09 12:48 Temp 36.6 Pulse 108 96 Resp 24 18 B/P (MAP) 196/100 (132) 139/64 Pulse Ox 95 97 (ADITYA ROLLINS MD) Vital Signs/I&O Capillary Refill : (ADITYA YOUNG) Blood Pressure Mean: 132 Diagnostic Imaging Diagonstic Imaging: Xray Plain Films/CT/US/NM/MRI: chest Comments [facility], [place] NAME: APRIL FUNES Alexandro [facility] REC#: [id number] PT STATUS: REG ER : 1945 PHYSICIAN: ADITYA YOUNG ADMIT DATE: 04/23/21/ER Draft Date of Exam:04/23/21 CHEST PA/LAT (2 VIEW) INDICATION: swallowed pill, short of breath COMPARISON: 05/21/2018 FINDINGS: Frontal and lateral views of the chest demonstrate normal heart size and pulmonary vascularity. The lungs are clear. There are no signs of infiltrate, pleural effusions or pneumothoraces. The visualized osseous structures show no acute abnormalities. IMPRESSION: 1. No acute process. No signs of infiltrates, effusions or pneumothoraces. Dictated on workstation # [id number] Dict: 04/23/21 1149 Trans: 04/23/21 1150 [place] [id number] Interpreted by: NICOLE FERRARI MD Electronically signed by: (ADITYA ROLLINS MD) Departure Communication (Admissions) Patient swallowed her magnesium pill and felt like the medication was stuck in the back of the throat. Excessive coughing. This occurred 10 minutes before arrival. Mild distress but tolerating secretions. She was not hypoxic. No stridor. Lung sounds clear bilateral. Chest x-ray unremarkable. Patient was able to cough up very small pieces of the medication. She was tolerating p.o. soda here in the ED. Was able to eat crackers without difficulties. Patient was observed here in the ED and feeling much better. She reports sensation in her throat but states it feels like it is getting better. Tolerating secretions. She appears well nontoxic. If any change in symptoms she will return back to ED. Provided GI outpatient follow-up if need be if needing EGD. History of mild stricture and hiatal hernia in the past. (ADITYA YOUNG) Impression Primary Impression: Throat pain Disposition: 01 HOME, SELF-CARE Condition: Improved Departure-Patient Inst. Decision time for Depature: 12:41 (ADITYA YOUNG) Referrals: NIKOLE BROWN JOHN D MD (PCP/Family) Primary Care Physician Patient Instructions: Foreign Body, Swallowed, Adult ADITYA YOUNG Apr 23, 2021 11:20 ADITYA ROLLINS MD Apr 23, 2021 13:35
--- NOTE | 2021-04-23 11:50 | Diagnostic Imaging Report ---
INDICATION: swallowed pill, short of breath COMPARISON: 05/21/2018 FINDINGS: Frontal and lateral views of the chest demonstrate normal heart size and pulmonary vascularity. The lungs are clear. There are no signs of infiltrate, pleural effusions or pneumothoraces. The visualized osseous structures show no acute abnormalities. IMPRESSION: 1. No acute process. No signs of infiltrates, effusions or pneumothoraces. Dictated by: Dictated on workstation # [id number]
[2021-04-23 12:48] VITALS: BP 139/64
== END 2021-04-23 12:48 | disposition home or self-care (01) ==
LOC: EDUNIT# 11:05 → ER 11:08
DX: R07.0 Pain in throat (principal); I25.2 Old myocardial infarction; I10 Essential (primary) hypertension; E78.00 Pure hypercholesterolemia, unspecified; K21.9 Gastro-esophageal reflux disease without esophagitis; Z79.82 Long term (current) use of aspirin; Z79.899 Other long term (current) drug therapy
CPT/HCPCS: 71046

== ENCOUNTER → 2022-05-26 | Outpatient (CLI) | payer MEDICARE ==
[~2022-05-26] MED LIST changes: +CATHETER FLUSH 10 ML SYR IV PRN; +HOLD METFORMIN - RECEIVED CONTRAST 20 ML VIAL IV SCH; +IOHEXOL 350 MG/ML 100 ML (OMNIPAQUE 350) VIAL IV ONE; +NS 100 ML (IVPB) BAG IV ONE
[2022-05-26 09:26] LABS: CREATININE SERUM 0.95 MG/DL (0.60-1.30)
--- NOTE | 2022-05-26 12:01 | Diagnostic Imaging Report ---
REASON FOR EXAM: Atherosclerotic disease. History of esophageal dilation. TIME OF EXAM: 05/26/2022, 9:49 a.m. COMPARISON: 08/07/2015. TECHNIQUE: After intravenous contrast administration, helical CT angiography of the neck was performed. Source data was reformatted into 3D MIP projections. Delayed post contrast acquisition was also obtained. All CT scans use one or more of the following dose optimizing techniques: automated exposure control, MA and/or KvP adjustment based on a patient size and exam type, or iterative reconstruction. FINDINGS: The visualized portions of the aortic arch demonstrate atherosclerotic plaque without evidence of aneurysm or dissection. There is conventional branching pattern of the great vessels of the aorta. The brachiocephalic artery is normal in course and caliber. The right and left common carotid origins are unremarkable. The origin of the left subclavian artery is patent. The common carotid arteries and internal carotid arteries demonstrate a mildly tortuous course. There is calcified atherosclerotic plaque in the bilateral carotid bulbs and proximal internal carotid arteries resulting in less than 50% stenosis bilaterally. No evidence of dissection in the carotid systems. The external carotid arteries are patent and unremarkable. The left vertebral artery is dominant. The origin of the right vertebral artery is seen and is unremarkable. The origin of the left vertebral artery is seen and is unremarkable. There is no focal stenosis seen within the neck. There is no dissection. The vertebral arteries are well visualized to up to the level of the basilar artery. The osseous structures of the cervical spine are unremarkable. Biapical scarring is noted. IMPRESSION: 1. Atherosclerotic plaque in the bilateral carotid systems resulting in less than 50% stenosis. 2. No stenosis or dissection in the bilateral vertebral arteries. Dictated by: Dictated on workstation # [id number]
== END ==
LOC: RAD 08:44
PROVIDERS: ATTEND Internal Medicine Cardiovascular Disease
DX: I65.23 Occlusion and stenosis of bilateral carotid arteries (principal)
CPT/HCPCS: 36415; 70498; 82565; 84520

== ENCOUNTER → 2023-03-04 | Outpatient (CLI) | payer MEDICARE ==
[~2023-03-04] MED LIST changes: +ASPI-1238 PO; -CATHETER FLUSH 10 ML SYR IV PRN; +FURO20TA4 PO; -HOLD METFORMIN - RECEIVED CONTRAST 20 ML VIAL IV SCH; +IBUP-2473 PO; -IOHEXOL 350 MG/ML 100 ML (OMNIPAQUE 350) VIAL IV ONE; -NS 100 ML (IVPB) BAG IV ONE; +OMEP40CA6 PO
== END ==
LOC: CARD 10:33
PROVIDERS: ATTEND Internal Medicine Cardiovascular Disease
DX: I34.0 Nonrheumatic mitral (valve) insufficiency (principal); I36.1 Nonrheumatic tricuspid (valve) insufficiency
CPT/HCPCS: 93306

== ENCOUNTER 2023-03-08 07:51 | Observation (INO) | payer MEDICARE ==
[~2023-03-08] VITALS: Ht 161.3 cm; Wt 79.9 kg
[2023-03-08] VITALS (28 sets, daily range): BP systolic 101–218; BP diastolic 50–109
[~2023-03-08 07:51] MED LIST changes: -ASPI-1238 PO; -FURO20TA4 PO; -IBUP-2473 PO; -OMEP40CA6 PO
[2023-03-08] MEDS ORDERED: CATHETER FLUSH 10 ML SYR IVP PRN (08:00)
[2023-03-08] MEDS ORDERED: REGADENOSON 0.4 MG/5 ML SYR IV ONE ×2 (08:55→10:15)
[2023-03-08] MEDS ORDERED: HEParin (CATH LAB) 2,000 ML IV ONE (11:48)
[2023-03-08] MEDS ORDERED: NS IV 1000 ML 1,000 ML ONE (11:48)
[2023-03-08] MEDS ORDERED: LIDOCAINE 1% INJ 20 ML VIAL ONE (11:48)
--- NOTE | 2023-03-08 12:04 | Cardiology History & Physical ---
HPI-Cardiology Cardiology Consultation Date of Consultation 03/08/23 Date of Admission Time Seen by Provider: 11:59 Indication: Chest pain, abnormal stress test HPI Patient is a 78 y/o female with history of CAD with multiple stents to the RCA. Was evaluated in our office last week for chest pain and progressive dyspnea on exertion over the past 3 months. Patient had abnormal stress test this morning, had chest pain and dyspnea with lexican injection, relieved by SL nitro. Images suggestive of ischemia. Patient continued to be symptomatic and decision was made to admit to observation and plan for LHC later today. PMH-Cardiology Immunizations Up To Date Tetanus Booster (DTap): Unknown Date of Pneumonia Vaccine: Oct 18, 2014 Date of Influenza Vaccine: May 20, 2018 Seasonal Allergies Seasonal Allergies: Yes (MILD) Surgeries No Respiratory No Cardiovascular Yes (heart stents) Heart Attack, Hypertension, Coronary Artery Disease Neurological No Reproductive System Hx Reproductive Disorders: No Sexually Transmitted Disease: No HIV/AIDS: No Genitourinary No Gastrointestinal Yes Gastroesophageal Reflux Musculoskeletal No Endocrine No HEENT Yes (READING GLASSES) Loss of Vision: Denies Hearing Impairment: Denies Cancer No Psychosocial No Integumentary No Blood Transfusions No Adverse Rxn to Transfusion: No (HAS HAD BLOOD WITH NO REACTION) Social History Patient Social History Marrital Status: Smoking: Former smoker Family Hx Significant Family History: Heart Disease ROS-Cardiology Review of Systems General: No Chills, No Night Sweats, No Fatigue, No Malaise, No Appetite, No Other HEENT: No Head Aches, No Visual Changes, No Eye Pain, No Ear Pain, No Dysphasia, No Sinus Congestion, No Post Nasal Drip, No Sore Throat, No Other Pulmonary: Dyspnea Cardiovascular: Chest Pain, Lt Headedness; No: Palpitations Gastrointestinal: No: Nausea, Vomiting, Abdominal Pain Genitourinary: No Dysuria, No Frequency Home Medications & Allergies Allergies: Coded Allergies: No Known Drug Allergies (Unverified , 01/23/19) Home Medication List Reviewed: Yes Exam-Cardiology Vital Signs Vital Signs Date Time Temp Pulse Resp B/P (MAP) Pulse Ox O2 Delivery O2 Flow Rate FiO2 03/08/23 12:00 36.0 77 21 178/84 (115) 97 Room Air Exam General Appearance: Alert, Oriented X3, Cooperative HEENT: Atraumatic, PERRLA Respiratory: Clear to Auscultation, Normal Air Movement Cardiovascular: Regular Rate, Normal S1, Normal S2 Abdominal: Normal Bowel Sounds, Soft Extremities: No Edema Skin: No Rashes Neuro: Normal Gait Psych/Mental Status: Mental Status NL, Mood NL A/P-Cardiology Admission Diagnosis Chest pain Dyspnea Abnormal stress test CAD Admission Status: Observation Assessment/Plan Abnormal stress test on 03/08/23, planning for LHC later today Dyspnea on exertion worsening recently, having worsening shortness of breath. Occasional left-sided chest discomfort Abnormal stress test as discussed above, will plan for LHC later today. Coronary artery disease Status post acute ST elevation myocardial infarction and cardiogenic shock in September 2012. Underwent 3.5x18 mm integrity bare-metal stent to the midright coronary artery. Brought back with subacute stent thrombosis had 2 additional stent in the proximal and distal portion of the right coronary artery using 3.5x18 mm resolute stent in the mid to distal right coronary artery and another 3.5x22 mm resolute stent in the proximal portion of the right coronary artery with excellent results. Most recent stress test done on July 08, 2020 showing good exercise tolerance for a total of 4 minutes 30 seconds on standard Dima protocol achieving 92% of maximal expected heart rate, occasional PVCs early in exercise and late in recovery improved during exercise. Breast attenuation with typical female pattern with no significant ischemia or infarction on SPECT images, EF 78%. Echocardiogram done on March 04, 2023 showing normal LV size, EF 50-55%, mild MR, mild to moderate TR, PA 40 mmHg. Continue to monitor Status post cardiogenic shock September [address] elevation myocardial infarction. Continue monitoring Hypertension, restart home blood pressure medications and continue to monitor. Hyperlipidemia, maintained on Lipitor 10 mg daily Had lab work done on March 03, [address] Leone, I will try to obtain copy of the results Planning to reevaluate lipid profile. Moderate bilateral carotid stenosis, most recent carotid duplex done February 2023 Ex Tobaccoism, patient stopped smoking since her heart attack in September 2012. Patient was encouraged to continue with smoking cessation. Family history of coronary artery disease. Status post transient elevation in liver enzymes due to shock liver. Improved currently tolerating statin well. This is Kasi Tilley PA-C as a scribe for Dr. Dillard. Patient was seen and evaluated with Kasi, I interviewed and examined the patient I am planning to proceed with cardiac catheterization possible PTCA today KASI JORDAN Mar 08, 2023 12:04 VALARIE DILLARD MD Mar 08, 2023 12:51
--- NOTE | 2023-03-08 12:52 | Cardiac Procedure Note-CS/ASA ---
Pre-Procedure Note Pre-Op Procedure Note Date of Available H&P: Mar 08, 2023 Date H&P Reviewed: Mar 08, 2023 Time H&P Reviewed: 12:52 History & Physical: H&P Reviewed, Patient Examed, No changes noted Pre-Operative Diagnosis: CAD Moderate Sedation PreProcedure Time 12:52 ASA Score 3 Airway Lungs Heart ASA score ASA 1: a normal healthy patient ASA 2: a patient with a mild systemic disease (mid diabetes, controlled hypertension, obesity ASA 3: a patient with a severe systemic disease that limits activity (angina, COPD, prior Myocardial infarction) ASA 4: a patient with an incapacitating disease that is a constant threat to life (CHF, renal failure) ASA 5: a moribund patient not expected to survive 24 hrs. (ruptured aneurysm) ASA 6: a declared brain- patient whose organs are being harvested. For emergent operations, add the letter E after the classification Mallampati Classification Grade 3 Sedation Plan Analgesia, Amnesia, Plan communicated to team members, Discussed options with patient/fam, Discussed risks with patient/fam The patient is an appropriate candidate to undergo the planned procedure, sedation, and anesthesia. The patient immediately re-assessed prior to indication. VALARIE MARTELL MD Mar 08, 2023 12:52
[2023-03-08] MEDS ORDERED: NS IV 1000 ML 1,000 ML IV SCH (13:00)
[2023-03-08 13:26] LABS: HEMATOCRIT 39 % (35-52); HEMOGLOBIN 12.8 g/dL (11.5-16.0); MEAN CORPUSCULAR HEMOGLOBIN 32 pg (25-34); MEAN CORPUSCULAR HGB CONC 33 g/dL (32-36); MEAN CORPUSCULAR VOLUME 97 fL (80-99); MEAN PLATELET VOLUME 11.3 fL (9.0-12.2); PLATELET COUNT 201 10^3/uL (130-400)
[2023-03-08 13:34] LABS: INR 0.9 (0.8-1.4)
[2023-03-08 13:42] LABS: BILIRUBIN,TOTAL 0.7 MG/DL (0.1-1.0); CALCIUM 9.2 MG/DL (8.5-10.1); CREATININE SERUM 0.86 MG/DL (0.60-1.30); POTASSIUM 3.2 MMOL/L (3.6-5.0); TOTAL PROTEIN 6.7 GM/DL (6.4-8.2)
[2023-03-08] MEDS ORDERED: ASPI-1238 PO (14:06)
[2023-03-08] MEDS ORDERED: FURO20TA4 PO (14:06)
[2023-03-08] MEDS ORDERED: OMEP40CA6 PO (14:06)
[2023-03-08] MEDS ORDERED: IBUP-2473 PO (14:06)
[2023-03-08] MEDS ORDERED: meTOprolol INJECTION 5 MG/5 ML VIAL IV NR (15:00)
[2023-03-08] MEDS ORDERED: VERAPAMIL 5 MG/2 ML (CALAN) VIAL IV ONE (15:20)
[2023-03-08] MEDS ORDERED: HEParin 1000 UNIT/ML (10ML VIAL) FOR BOLUS ONE (15:20)
[2023-03-08] MEDS ORDERED: fentaNYL INJECTION 100 MCG/2 ML VIAL ONE (15:20)
[2023-03-08] MEDS ORDERED: MIDAZOLAM INJ 5 MG/5 ML VIAL ONE (15:20)
[2023-03-08] MEDS ORDERED: NITRO DRIP 25000 MCG/D5W 250 ML IV ONE (15:20)
[2023-03-08] MEDS ORDERED: meTOprolol INJECTION 5 MG/5 ML VIAL ONE ×3 (16:14→16:21)
[2023-03-08] MEDS ORDERED: PATIENT MAY USE OWN MEDS, ALL PO SCH (16:45)
--- NOTE | 2023-03-08 16:48 | Cardiac Cath Report ---
Cardiac Cath Report Physician (s)/Supervisor [employer] (s) Physician VALARIE MARTELL MD Pre-Procedure Diagnosis Pre-Procedure Diagnosis: CAD Post-Procedure Note Procedure Start Date: Mar 08, 2023 Name of Procedure: Left heart catheterization Aortic arch angiogram Abdominal aortogram Selective right and left renal angiogram Findings/Procedure Note PROCEDURE NOTE: 78-year-old lady admitted with chest pain, had an abnormal stress test, cardiac catheterization was advised. After explaining the procedure to the patient, all pros and cons were explained, all questions were answered. The patient signed the consent and then she was placed in the cardiac catheterization laboratory. Groin was prepped in SL fashion local anesthesia was used. Sheath placed in the right femoral artery. Den' right and left catheter were used to access the coronary system. Pigtail was used to access the left ventricular cavity. Left ventriculogram was not done, pressure was measured Patient has severe hypertension required multiple doses of IV Lopressor. Calcified aortic arch. I decided to evaluate the aortic arch and aortic arch angiogram was done then I pulled the catheter down to the abdominal aorta and did abdominal aortogram I was suspicious of having underlying renal artery stenosis The Den right catheter was introduced again and engaged the left renal artery and angiogram was done then engaged the right renal artery and selective angiogram was done. At the end of the procedure the sheath was removed. Closure device was deployed FINDINGS: Hemodynamics LV 186/23, end-diastolic pressure of 23 Aorta 180/81 mean of 117 ANATOMY: Left Main is free of obstructive disease Left Anterior Descending is tortuous artery with mild disease less than 40% stenosis in the mid LAD nonobstructive disease Left Circumflex is nondominant artery with no obstructive disease Right Coronary Artery is a large dominant artery with patent stent in the proximal and mid right coronary artery, small vessel disease distally nonobstructive disease LV Gram was not done, pressure was measured Aortic arch angiogram was done showing calcification in the aortic arch with hypertensive changes tortuous innominate artery, not calcified with no obstructive disease, normal left carotid and left subclavian arteries Abdominal aortogram done in the AP position abdominal aorta is normal, mild aneurysmal dilatation in the mid abdominal aorta, normal SMA and KWASI, tortuous renal arteries Selective left renal angiogram showed tortuous artery with 40 to 50% ostial stenosis, calcified artery nonobstructive disease Selective right renal angiogram showed mild calcification with no significant obstructive disease CONCLUSION: Patent stents in the LAD and right coronary artery with mild to moderate disease nonobstructive disease Elevated left ventricular end-diastolic pressure probably due to hypertensive heart disease Calcified aortic arch with no dissection or aneurysm Calcified left renal artery with 40 to 50% ostial stenosis nonobstructive disease and tortuous right renal artery with no obstructive disease DISCUSSION AND RECOMMENDATION: Maximize medical therapy patient will need aggressive treatment for her hypertension. Anesthesia Type: Conscious Sedation Estimated blood loss (mL): 15 ml Contrast Amount: 75 ml Total Radiation Dose: 453 mGy Post-Procedure Diagnosis Post-operative diagnosis: Chest pain Coronary artery disease Hypertensive urgency VALARIE MARTELL MD Mar 08, 2023 16:48
[2023-03-08] MEDS ORDERED: cloNIDine 0.1 MG TABLET PO NR (17:00)
[2023-03-08] MEDS ORDERED: ASPIRIN enteric coated 81MG TABLET PO SCH (17:00)
[2023-03-08] MEDS ORDERED: FUROSEMIDE 20 MG TABLET PO SCH (17:00)
--- NOTE | 2023-03-08 17:00 | Cardiology Stress Test Report ---
Stress Test Report Date of Procedure/Referring: Date of Procedure: Mar 08, 2023 PCP Chel Romero MD Admitting Physician Admitting Physician: Ned Dillard MD Attending Physician: Ned Dillard MD Indications: CP Baseline Heart Rate: 69 Baseline Blood Pressure: Blood Pressure Systolic: 191 Blood Pressure Diastolic: 91 Baseline Vitals Vital Signs Date Time Temp Pulse Resp B/P (MAP) Pulse Ox O2 Delivery O2 Flow Rate FiO2 03/08/23 10:30 69 218/109 (145) 03/08/23 12:00 13 03/08/23 12:00 36.0 97 Room Air Baseline EKG: Baseline EKG: NSR Summary After explaining the procedure to the patient, she signed a consent and then brought to the stress nuclear laboratory. Patient received 0.4 mg Lexiscan for stress test, ECG, heart rate and blood pressure were monitored continuously. Resting and stress dose of radio tracer were injected, imaging was acquired and reviewed in short axis, horizontal long axis and vertical long axis views. SSS: 9 SDS: 5 EF: 83 Patient had significant chest pain with Lexiscan requiring nitroglycerin Baseline severe hypertension persisted during test Reversible ischemia involving the mid to apical anterior lateral and inferolateral wall Normal left ventricular size, ejection fraction 83% Copy Copies To 1: CHEL ROMERO MD, BASHAR J MD Mar 08, 2023 17:00
[2023-03-08] MEDS: NS IV 1000 ML 1,000 ML IV SCH (17:11)
[2023-03-09] VITALS (9 sets, daily range): BP systolic 113–146; BP diastolic 49–86
[2023-03-09] MEDS: NS IV 1000 ML 1,000 ML IV SCH (03:06)
--- NOTE | 2023-03-09 05:52 | Discharge Inst-Post CATH ---
Discharge Inst-CATH/EP Problems Reviewed?: Yes Post Cardiac Cath/EP D/C Inst Follow Up/Plan Appointment with Dr Dillard in 2-4 weeks <b>CARDIAC CATH/EP PROCEDURE DISCHARGE INSTRUCTIONS</b> ACTIVITY * Go Home directly and rest. * Limit activity of the leg (or wrist if it was used) for 7 days including aerobics, swimming, jogging, bicycling, etc. * Restrict stair-climbing for 7 days if possible, if not, climb up with your non-cath leg, then bring together on the same step. * Avoid lifting, pushing, pulling or excessive movement of the affected extremity for 7 days. * Customary sexual activity may be resumed after 2 days-use caution not to use a position that strains or causes pain to the affected extremity. * No driving for 24 hours. * NO SMOKING. * Avoid straining for bowel movements for 7 days. * Gentle walking on level ground is allowed. * Returning to work will depend on the type of procedure and the results. Your doctor will discuss this with you. CALL YOUR DOCTOR FOR ANY OF THE FOLLOWING: *If bleeding from the puncture site occurs- Apply gentle pressure to site with clean cloth and call your doctor or EMS. * If a knot or lump forms under the skin, increases in size, or causes pain. * If bruising appears to be worsening or moving further down your leg instead of disappearing. * Temperature above 101 F. CARE OF YOUR GROIN INCISION; * Bruising or purple discoloration of the skin near the puncture site is common. * You may shower only, no bathtub bathing for 5 days. Be careful to avoid slipping as your leg may feel stiff. * If a closure device was used on your femoral artery, please see the attached guide regarding care of the device and your leg. * Leave dressing on FOR 24 hours. CARE OF YOUR WRIST INCISION; * Bruising or purple discoloration of the skin near the puncture site is common. * You may shower. * DO NOT submerge wrist. * Leave dressing on FOR 24 hours. VALARIE DILLARD MD Mar 09, 2023 05:52
--- NOTE | 2023-03-09 07:45 | Cardiology Progress Note ---
Subjective Date Seen by Provider: Mar 09, 2023 Time Seen by Provider: 07:43 Subjective/Events-last exam Patient is laying down in bed, feeling better, blood pressure is more stable Objective-Cardiology Exam Last Set of Vital Signs Vital Signs 03/08/23 03/09/23 03/09/23 15:00 06:00 07:20 Temp 35.9 Pulse 61 Resp 17 B/P (MAP) 125/62 (83) Pulse Ox 91 O2 Delivery Room Air I&O Intake and Output 03/09/23 00:00 Intake Total 0 ml Output Total 725 ml Balance -725 ml Intake Oral 0 ml Output Urine Total 725 ml # Voids 1 Daily Weight Change No General: Alert, Oriented X3, Cooperative HEENT: Atraumatic, PERRLA Neck: Supple, No JVD Lungs: Clear to Auscultation, Normal Air Movement Heart: Regular Rate, Normal S1, Normal S2 Abdomen: Normal Bowel Sounds, Soft Extremities: No Edema Skin: No Rashes Neuro: Normal Gait, Normal Speech, Strength at 5/5 X4 Ext Psych/Mental Status: Mental Status NL, Mood NL Results Lab Laboratory Tests 03/08/23 13:12 A/P-Cardiology Admission Diagnosis Chest pain Dyspnea Abnormal stress test CAD Assessment/Plan Abnormal stress test on 03/08/23, Status post cardiac catheterization showing patent stents with nonobstructive disease Dyspnea on exertion worsening recently, having worsening shortness of breath. Occasional left-sided chest discomfort Abnormal stress test as discussed above, will plan for C later today. Coronary artery disease Status post acute ST elevation myocardial infarction and cardiogenic shock in September 2012. Underwent 3.5x18 mm integrity bare-metal stent to the midright coronary artery. Brought back with subacute stent thrombosis had 2 additional stent in the proximal and distal portion of the right coronary artery using 3.5x18 mm resolute stent in the mid to distal right coronary artery and another 3.5x22 mm resolute stent in the proximal portion of the right coronary artery with excel lent results. Patient had an abnormal stress on March 08, 2023, cardiac catheterization done on March 08, 2023 showing patent stents with nonobstructive disease. Elevated left ventricular end-diastolic pressure with hypertensive urgency. Echocardiogram done on March 04, 2023 showing normal LV size, EF 50-55%, mild MR, mild to moderate TR, PA 40 mmHg. Continue to monitor Status post cardiogenic shock September [address] elevation myocardial infarction. Continue monitoring Hypertension, hypertensive urgency, difficult to to control Reported that her blood pressure is usually under better control at home I instructed her to check her blood pressure twice a day at home and recorded and reported to me Hyperlipidemia, maintained on Lipitor 10 mg daily Had lab work done on March 03, [address] Leone, Moderate bilateral carotid stenosis, most recent carotid duplex done February 2023 Ex Tobaccoism, patient stopped smoking since her heart attack in September 2012. Patient was encouraged to continue with smoking cessation. Family history of coronary artery disease. Status post transient elevation in liver enzymes due to shock liver. Improved currently tolerating statin well. VALARIE MARTELL MD Mar 09, 2023 07:45
[2023-03-09] MEDS ORDERED: NON-FORMULARY MEDICATION 1 EA EA (Omeprazole 40 MG) PO SCH (14:00)
[2023-03-09] MEDS ORDERED: PANTOPRAZOLE 40 MG TABLET PO SCH (14:00)
== END 2023-03-09 08:12 | disposition home or self-care (01) ==
LOC: CARD 07:51 → UNDOADMOB 11:55 → CSD 11:55 → ICU 17:00 → UNDODISOB 03-09 08:12
PROVIDERS: ADMIT Internal Medicine Cardiovascular Disease; ATTEND Internal Medicine Cardiovascular Disease
DX: I25.10 Atherosclerotic heart disease of native coronary artery without angina pectoris (principal); I16.0 Hypertensive urgency; I70.1 Atherosclerosis of renal artery; R94.39 Abnormal result of other cardiovascular function study; I10 Essential (primary) hypertension; I21.3 ST elevation (STEMI) myocardial infarction of unspecified site; I08.1 Rheumatic disorders of both mitral and tricuspid valves; I65.23 Occlusion and stenosis of bilateral carotid arteries; R74.01 Elevation of levels of liver transaminase levels; K72.00 Acute and subacute hepatic failure without coma; E78.5 Hyperlipidemia, unspecified; Z79.899 Other long term (current) drug therapy; Z87.891 Personal history of nicotine dependence
CPT/HCPCS: 36221; 36252; 75625; 78452; 80053; 80061; 85027; 85610; 85730; 87081; 93017; 93458; 96361 ×2; 96374; A9502; C1760; C1894; G0378 ×2; G0379; 36415